=== PATIENT | female | born 1975 | race Caucasian/White ===

== ENCOUNTER 2018-07-09 07:28 | Day surgery (SDC) | payer OTHER ==
[~2018-07-09 07:28] MED LIST: CEFAZOLIN/SWI 1gm 1 GM/10 ML SYR IV SCH
[2018-07-09] MEDS ORDERED: Ringers Lactate 1,000 ML IV ONE ×2 (07:49→09:31)
[2018-07-09] MEDS ORDERED: CEFAZOLIN/SWI 1gm 1 GM/10 ML SYR ONE (07:50)
[2018-07-09] MEDS ORDERED: PROPOFOL 200 MG/20 ML VIAL IV ONE (07:52)
[2018-07-09] MEDS ORDERED: ONDANSETRON HCL 40 MG/20 ML VIAL ONE (07:52)
[2018-07-09] MEDS ORDERED: ROCURONIUM 50 MG/5 ML VIAL IV ONE (07:52)
[2018-07-09] MEDS ORDERED: FENTANYL CITR 250 MCG/5 ML ONE (07:52)
[2018-07-09] MEDS ORDERED: LIDOCAINE 1% MPF 5 ML VIAL ONE (07:52)
[2018-07-09] MEDS ORDERED: MIDAZOLAM HCL 2 MG/2 ML INJ ONE (07:52)
[2018-07-09 07:53] LABS: Specific Gravity 1.025 (1.005-1.030)
[2018-07-09] MEDS ORDERED: BUPIVACAINE 0.5% PF 10 ML VIAL ONE (08:06)
[2018-07-09] MEDS ORDERED: BUPIVACA 0.25%/EPI 0.0005% MDV 50 ML VIAL ONE (08:11)
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
[2018-07-09] MEDS ORDERED: KETOROLAC 30 MG/ML INJ ONE (09:41)
[2018-07-09] MEDS: MEPERIDINE HCL 50 MG/ML AMP ONE ×4 (10:26→10:43)
[2018-07-09] MEDS ORDERED: METOCLOPRAMIDE 10 MG/2mL INJ ONE (10:47)
[2018-07-09] MEDS ORDERED: HYDROCODONE/APAP 5/325 MG TAB ONE (12:02)
--- NOTE | 2018-07-09 20:19 | OP ---
Date of Procedure: 07/09/2018 Surgeon: Douglas Ray MD, Preoperative Diagnosis: Ventral hernia. Postoperative Diagnosis: Ventral hernia. Procedure Performed: A laparoscopic ventral hernia repair with mesh. Anesthesia: General endotracheal plus local, 0.25% Marcaine with epinephrine. Estimated Blood Loss: Less than 10 cc. Specimens: None. Findings: Periumbilical ventral hernia, epigastric diastasis recti. Complications: None. Implants: Bard Ventralight ST 15 cm x 10 cm mesh with Echo Positioning System. Disposition: Transferred to the recovery room in good condition. Procedure In Detail: After informed consent was obtained, the patient was brought to the operating r oom and prepped and draped in the usual sterile fashion. After adequate anesthesia was achieved, an area in the left lower quadrant was anesthetized with 0.25% Marcaine and sharply incised, and a 5 mm optical trocar was introduced in the abdomen without evidence of complication. Insufflation was obta ined to 15 mmHg. At this time, there was no injury to bowel structures upon entering the abdomen. T he area was inspected and a periumbilical ventral hernia was appreciated at this time with fat contai osvaldo. The epigastric area was inspected also at this time and found to have diastasis recti without a definable hernia as such; therefore, attention was turned back to the umbilical hernia area. Additi onal trocar site was chosen in the right lower quadrant and this was similarly anesthetized and sharp ly incised, and a 5-mm trocar was introduced in the abdomen without evidence of complication. Additi onal trocar was chosen in the left mid quadrant of the abdomen. This was similarly anesthetized and sharply incised. A 5-mm trocar was introduced in the introduced in the abdomen without any evidence of complication. Three total ports were placed. The left superior quadrant trocar was then up-sized to a 12 mm under direct visualization without any evidence of complication. Using the LigaSure khoi ce, the omental fat and preperitoneal fat was removed from the umbilical trocar region and dissection continued down to remove the fat all the way extending to the falciform ligament, which was left int act. This fat tissue was ligated and removed through the umbilical trocar after placing EndoCatch ba g into the abdomen. All the specimen was removed. It was simple preperitoneal fat which was firmly adherent to this area, which was devascularized. It was not sent off for pathologic examination; it was simply removed from the field at this time. The area was inspected and proper hemostasis was ach ieved this time. The hernia defect in the periumbilical ventral position was then sized appropriatel y and found to be approximately 8 cm defect. A 15 x 10 cm mesh was used. As it was in the long lie, this allowed for 5 cm of overlay circumferentially as the hernia defect was approximately 8 x [address] The [address] Vent[address]ight ST 15 x 10 cm mesh was then rolled, placed through the lateral port, and positi oned using the Echo Positioning System through the center portion of the defect by inflating the ball oon. After this was positioned appropriately, the absorbable fixation tacks were then placed into th e abdominal wall, securing this circumferentially. The balloon deployment system was then removed an d found to be intact on the back table. After this was done, the mesh was then resecured at double c rown type position to the abdominal wall with the same set absorbable fixation tacks. Approximately 30 tacks were used with good approximation to the abdominal wall. The area was inspected for hemosta sis, which was achieved at this time without any additional hemostatic maneuvers. Under a slight indio ufflation, the area was inspected once again and the mesh was found to be in good position. The 12 m m trocar was then removed and the trocar site was then closed with a Pablito-Vicky suture passer us ing a 0 Vicryl in interrupted fashion with good approximation of the tissues. The abdomen was then c ompletely desufflated under direct visualization without any evidence of complication. All skin inci sions were copiously irrigated and closed with 4-0 Monocryl in a running fashion. Dermabond was plac ed over top. The patient tolerated the procedure well without evidence of complication and transferred PACU in good condition. All counts were correct at the end of the ca se. TK/MODL Voice ID: [id number] Report ID: [id number]
== END 2018-07-09 12:50 | disposition home or self-care (01) ==
LOC: OR 07:28
PROVIDERS: ATTEND Surgery
PROC: 0WUF4JZ Supplement Abdominal Wall with Synthetic Substitute, Percutaneous Endoscopic Approach (ICD-10-PCS; principal; 2018-07-09 08:30)
DX: K43.9 Ventral hernia without obstruction or gangrene (principal); M62.08 Separation of muscle (nontraumatic), other site
CPT/HCPCS: 81025; J0690; J2175; J2250; J2405; J2765